=== PATIENT | male | born 1955 | race Caucasian/White ===

== ENCOUNTER → 2021-04-11 | Outpatient (CLI) | payer MEDICARE, OTHER ==
--- NOTE | 2021-04-11 13:27 | KCIC ---
EXAMINATION: CT SCREENING FOR CORONARY ARTERY INDICATION:65 years, Male, family history of heart disease. Cardiovascular screening. TECHNIQUE: With retrospective electrocardiogram gating axial reconstructed images of the chest at the level of the coronary arteries was performed. Images were post processed on workstation and calcium score calculated using the modified Agatston Janowitz protocol. Exposure: One or more of the following individualized dose reduction techniques were utilized for thi s examination: 1. Automated exposure control 2. Adjustment of the mA and/or kV according to patient size 3. Use of iterative reconstruction technique. COMPARISON: None FINDINGS: Total coronary calcium score is 230. This is a moderate amount of plaque burden and moderate to high cardiovascular disease risk. This is based on the calcium score of 0 of the left main coronary artery, 59 of the left anterior alton cending artery, score of 118 of the left circumflex artery and score of 52 of the right coronary maxi ry. NONCORONARY FINDINGS: Unremarkable. IMPRESSION: Total coronary calcium score is 230, consistent with moderate to high cardiovascular disease risk. Electronically signed by: Chari Wesley MD (04/11/2021 1:25 PM) [facility]
== END ==
LOC: KCIC CT 08:14
PROVIDERS: ATTEND Family Medicine
DX: Z13.6 Encounter for screening for cardiovascular disorders (principal)
CPT/HCPCS: 75571

== ENCOUNTER → 2021-04-11 | Outpatient (CLI) | payer MEDICARE ==
--- NOTE | 2021-04-11 12:02 | KCIC ---
Ultrasound evaluation of the abdominal aorta, screening for abdominal aortic aneurysm CLINICAL HISTORY: Reason: SCREENING AAA /history of smoking. COMPARISON: None available. TECHNIQUE: The abdominal aorta was examined from the diaphragm to the proximal common iliac arteries. FINDINGS: Diffuse atherosclerotic vascular disease is noted. No evidence of aneurysm is identified. The proximal abdominal aorta measures 2.2 cm in AP dimension. The mid abdominal aorta measures 2.0 cm in AP dimension. The distal abdominal aorta measures 2.3 in AP dimension. The right common iliac artery measures 1.4 x 1.4 in diameter. The left common iliac artery measures 1.3 x 1.1 in diameter. IMPRESSION No evidence for aortic aneurysm. Electronically signed by: Dudley Saunders MD (04/11/2021 12:00 PM) [id number]
== END ==
LOC: KCIC US 08:22
PROVIDERS: ATTEND Family Medicine
DX: Z13.6 Encounter for screening for cardiovascular disorders (principal); I70.0 Atherosclerosis of aorta
CPT/HCPCS: 76770